=== PATIENT | male | born 2000 | race Caucasian/White ===

== ENCOUNTER 2020-08-30 14:28 | Outpatient (REF) | payer MEDICAID, SELFPAY | END 2020-08-30 14:29 | disposition home or self-care (01) | LOC: HO.LNP 14:28 | PROVIDERS: Visit Provider Internal Medicine | DX: Z20.828 Contact with and (suspected) exposure to other viral communicable diseases (principal) | CPT/HCPCS: U0003 ==

== ENCOUNTER 2021-05-01 14:11 | Outpatient (REF) | payer MEDICAID, SELFPAY ==
[2021-05-01 14:56] LABS: Influenza A PCR NEGATIVE (Negative); Influenza B PCR NEGATIVE (Negative); Resp Syncy Virus RNA Qual PCR NEGATIVE (Negative); SARS COV2 PCR INHOUSE NEGATIVE (Negative)
== END 2021-05-01 14:12 | disposition home or self-care (01) ==
LOC: HO.LNP 14:11
PROVIDERS: Visit Provider Internal Medicine
DX: Z20.822 Contact with and (suspected) exposure to COVID-19 (principal); R05 Cough; J02.9 Acute pharyngitis, unspecified
CPT/HCPCS: 0241U

== ENCOUNTER 2021-09-13 16:43 | Outpatient (REF) | payer MEDICAID, SELFPAY ==
[2021-09-13 17:26] LABS: Influenza A PCR NEGATIVE (Negative); Influenza B PCR NEGATIVE (Negative); Resp Syncy Virus RNA Qual PCR NEGATIVE (Negative); SARS COV2 PCR INHOUSE NEGATIVE (Negative)
== END 2021-09-13 16:44 | disposition home or self-care (01) ==
LOC: HO.LNP 16:43
PROVIDERS: Visit Provider Internal Medicine
DX: Z20.822 Contact with and (suspected) exposure to COVID-19 (principal); J02.9 Acute pharyngitis, unspecified
CPT/HCPCS: 0241U

== ENCOUNTER 2021-10-09 15:45 | Outpatient (REF) | payer MEDICAID, SELFPAY ==
[2021-10-09 16:18] LABS: COVID-19 Test Negative (Negative); IDNOW Serial# 55D5AD1C
== END 2021-10-09 15:46 | disposition home or self-care (01) ==
LOC: HO.LNP 15:45
PROVIDERS: Visit Provider Internal Medicine
DX: Z20.822 Contact with and (suspected) exposure to COVID-19 (principal); J02.9 Acute pharyngitis, unspecified; R50.9 Fever, unspecified
CPT/HCPCS: 87635

== ENCOUNTER 2021-10-22 14:29 | Outpatient (REF) | payer MEDICAID, SELFPAY ==
[2021-10-22 14:49] LABS: COVID-19 Test Negative (Negative)
== END 2021-10-22 14:30 | disposition home or self-care (01) ==
LOC: HO.LNP 14:29
PROVIDERS: Visit Provider Internal Medicine
DX: Z20.822 Contact with and (suspected) exposure to COVID-19 (principal)
CPT/HCPCS: 87635

== ENCOUNTER 2022-05-08 14:44 | Outpatient (REF) | payer MEDICAID, SELFPAY ==
[2022-05-08 15:47] LABS: Influenza A PCR NEGATIVE (Negative); Influenza B PCR NEGATIVE (Negative); Resp Syncy Virus RNA Qual PCR NEGATIVE (Negative); SARS COV2 PCR INHOUSE NEGATIVE (Negative)
== END 2022-05-08 14:45 | disposition home or self-care (01) ==
LOC: HO.LNP 14:44
PROVIDERS: Visit Provider Internal Medicine
DX: Z20.822 Contact with and (suspected) exposure to COVID-19 (principal); R05.9 Cough, unspecified; R50.9 Fever, unspecified; J02.9 Acute pharyngitis, unspecified
CPT/HCPCS: 0241U

== ENCOUNTER 2023-07-08 21:07 | Emergency (ER) | payer OTHER, BC, SELFPAY ==
[2023-07-08 22:02] VITALS: BP 124/62; PULSE 84; RESP 18; TEMP 37; O2SAT 100; BMI 31.6
--- NOTE | 2023-07-09 02:36 | ED.WOUNDLAC ---
HPI - Wound/Laceration General Chief Complaint: Wound/Laceration Stated Complaint: Finger injury Time Seen by Provider: 07/09/23 02:16 Source: patient Mode of arrival: ambulatory Limitations: no limitations History of Present Illness HPI narrative: 22-year-old male came in for evaluation of left index finger laceration. Superficial cuts to the left index finger while using a floor scrap. Patient is a right-hand dominant past Related Data Allergies Allergy/AdvReac Type Severity Reaction Status Date / Time No Known Allergies Allergy Verified 07/08/23 22:01 Review of Systems Review of Systems: All other systems are reviewed and are negative Constitutional: Reports as per HPI and Reports no additional constitutional complaints Eyes: Reports as per HPI and Reports no additional eye complaints Reports system reviewed and no additional complaints, except as documented Cardiovascular: Reports as per HPI and Reports no additional cardiovascular complaints Respiratory: Reports as per HPI and Reports no additional respiratory complaints Gastrointestinal: Reports as per HPI and Reports no additional gastrointestinal complaints Genitourinary: Reports no additional female genitourinary complaints Musculoskeletal: Reports no additional musculoskeletal complaints Skin/Breast: Reports system reviewed and no additional complaints, except as docu Psychiatric: Reports no additional psychiatric complaints Endocrine: Reports no additional endocrine complaints Hematologic/Lymphatic: Reports no additional hematologic/lymphatic complaints Allergic/Immunologic: Reports no additional allergic/immunologic complaints Reports system reviewed and no additional complaints, except as documented and Reports Abnormal speech present [facility] Social History Social History Advance Directives: No Advance Directives Information Provided: Yes Physical Exam Vital Signs: Vital Signs: Last Vital Signs Temp 98.6 F 07/08/23 22:02 Pulse 84 07/08/23 22:02 Resp 18 07/08/23 22:02 BP 124/62 07/08/23 22:02 Pulse Ox 100 07/08/23 22:02 O2 Del Method Room Air 07/08/23 22:02 BMI result Body Mass Index 31.6 Vital signs have been reviewed and appear to be correct. Blood pressure elevated. Heart rate normal. Respiratory rate normal. Temperature normal. Oxygen saturation normal. Appearance: Alert. Oriented X3. No acute distress. Head: Normal external exam. Normocephalic. Atraumatic. No Handy signs noted. No raccoon eyes noted Eyes: PERRLA. EOMI. Conjunctiva and sclera normal. Eyelids normal. ENT: TM's Normal. Pharynx normal. Uvula midline. Moist mucous membranes. No trismus noted. No drooling noted. No muffled voice noted. Neck: Normal inspection. Neck supple. FROM. No adenopathy. Thyroid Normal. No meningeal signs. No neck mass noted. CVS: Normal heart rate and rhythm. Heart sound normal. No murmurs noted. Pulses normal throughout. Respiratory: No respiratory distress. Painless inspiration. Breath sounds normal. No wheezes/rales/rhonchi noted. Chest nontender. No accessory muscle usage noted or decreased air movement noted. Abdomen: Soft and nontender. Bowel sounds normal in all 4 quadrants. No distention noted. No organomegaly noted. No visible injury noted. Back: No CVA tenderness. Full range of motion noted. Skin: Skin warm and dry. Normal skin color. Normal skin turgor. No rashes/lesions/lacerations noted. Extremities: Left index finger: 2 cm superficial laceration in the middle phalanx distally, no active bleeding. Able to flex and extend both PIP and DIP, neurovascularly intact. Neuro: Oriented X 3. Cranial nerve exam: II-XII are grossly intact No motor deficit. No sensory deficit. Reflexes normal. Course Reevaluation(s) Reevaluation #1: S/p left index laceration that was repaired with Dermabond. Time: 02:39 Procedures Laceration Laceration 1: Site: hand (Middle phalanx of the index finger) Side (If applicable): left Size (cm): 2 Description: linear Depth: simple, single layer Skin layer closed with: other (Dermabond) Discharge Plan Discharge Clinical Impression: Finger laceration Qualifiers: Encounter type: initial encounter Finger: index finger Damage to nail status: without damage Foreign body presence: without foreign body Laterality: left Qualified Code(s): S61.211A - Laceration without foreign body of left index finger without damage to nail, initial encounter Patient Disposition: Home, Self-Care Instructions: Finger Laceration (ED)
== END 2023-07-09 03:13 | disposition home or self-care (01) ==
PROVIDERS: Emergency Provider Emergency Medicine
DX: S61.211A Laceration without foreign body of left index finger without damage to nail, initial encounter (principal); W26.9XXA Contact with unspecified sharp object(s), initial encounter; Y93.9 Activity, unspecified; Y92.9 Unspecified place or not applicable; Y99.9 Unspecified external cause status
CPT/HCPCS: 99282

== ENCOUNTER 2024-04-09 14:07 | Emergency (ER) | payer OTHER, BC, SELFPAY ==
--- NOTE | ~2024-04-09 | XR_ITS ---
EXAMINATION: XR KNEE, LEFT CLINICAL INFORMATION: Pain. Injury yesterday. COMPARISON: None available. TECHNIQUE: Four views of the left knee. FINDINGS: There is no fracture or dislocation. The joint spaces are well-maintained. No suprapatellar effusion. Regional soft tissue is normal in appearance. XR/XR knee LT 4V IMPRESSION: No fracture, dislocation or joint effusion.
[2024-04-09 14:09] VITALS: BP 136/63; PULSE 107; RESP 20; TEMP 36.4; O2SAT 97; BMI 33.2
--- NOTE | 2024-04-09 14:10 | ED_ITS ---
HPI - Extremity Injury (Lower) General Chief Complaint: Extremity Injury, Lower Stated Complaint: knee inj @ work Time Seen by Provider: 04/09/24 14:39 Source: patient Mode of arrival: ambulatory (with cane) Limitations: no limitations History of Present Illness ED Provider: Starr Martinez PA-C HPI Narrative: Patient is a 23 year old assigned male at with no reported medical history presenting to the emergency department today with left knee pain. Patient states that he jumped from the ground onto a stage, landing on both of his feet, when he felt and heard a pop in his left knee. Patient states that as time has gone on, the pain in his left knee has increased. Patient denies any head strike or loss of consciousness. Patient denies any dizziness, lightheadedness, abdominal pain, nausea, vomiting, fever, chills, blurry vision, double vision, loss of vision, chest pain, difficulty breathing, shortness of breath, back pain, night sweats, pain with urination, increased urinary frequency, increased urinary urgency, blood in his urine or stool, syncope or a near syncopal episode, bowel incontinence, bladder incontinence, or any other complaints at this time. MD complaint: knee injury Onset (ago): day(s) (1) Place: work Severity: moderate Severity scale (1-10): 6 Relieving factors: immobilization and rest Exacerbating factors: weight bearing and movement Context: jumping Associated symptoms: snap/pop sensation and swelling Other symptoms: none Related Data Allergies Allergy/AdvReac Type Severity Reaction Status Date / Time No Known Allergies Allergy Verified 04/09/24 14:12 Review of Systems Constitutional: Constitutional: Reports no additional constitutional complaints, Denies chills, Denies fever(s) and Denies night sweats Eyes: Eyes: Reports no additional eye complaints, Denies blurry vision, Denies change in vision, Denies diplopia, Denies eye discharge, Denies loss of vision and Denies eye pain ENT: Denies dizziness Cardiovascular: Cardiovascular: Reports no additional cardiovascular complaints, Denies chest pain, Denies lightheadedness, Denies Loss of Consciousness and Denies dyspnea Respiratory: Respiratory: Reports no additional respiratory complaints and Denies dyspnea Gastrointestinal: Gastrointestinal: Reports no additional gastrointestinal complaints, Denies abdominal pain, Denies melena, Denies hematochezia, Denies change in bowel habits and Denies change in stool character Genitourinary: Genitourinary: Reports no additional male genitourinary complaints, Denies hematuria, Denies oliguria, Denies difficulty urinating, Denies dysuria, Denies urinary frequency, Denies urinary hesitancy, Denies urinary incontinence and Denies urinary urgency Musculoskeletal: Musculoskeletal: Reports no additional musculoskeletal complaints, Denies numbness and Denies tingling Comments: left knee pain Neurologic: Denies dizziness, Denies loss of vision, Denies numbness and Denies tingling Psychiatric: Psychiatric: Reports no additional psychiatric complaints Endocrine: Endocrine: Reports no additional endocrine complaints Hematologic/Lymphatic: Hematologic/Lymphatic: Reports no additional hematologic/lymphatic complaints Allergic/Immunologic: Allergic/Immunologic: Reports no additional allergic/immunologic complaints PMFSH Past Medical History Attestation statement: The following information was validated with the patient. Source: old records reviewed and nursing notes reviewed Social History Social History Advance Directives: Yes Advance Directives Information Provided: Yes Advance Directives on File: No Do you have a plan to hurt others: No Plan Physical Exam Vital Signs: Vital Signs: Last Vital Signs Temp 97.5 F 04/09/24 16:47 Pulse 107 H 04/09/24 16:47 Resp 20 04/09/24 16:47 BP 136/63 04/09/24 16:47 Pulse Ox 97 04/09/24 16:47 O2 Del Method Room Air 04/09/24 16:47 BMI result Body Mass Index 33.2 Const: General: cooperative, no acute distress, alert and awake Nutritional Appearance: well nourished Orientation/consciousness: patient oriented x3 Limitations: no limitations HEENT: Head: Yes normal to inspection and Yes atraumatic Ears: hearing grossly normal bilaterally and external ears normal General nose exam: Normal external nose present, no nasal discharge noted and no epistaxis Face and sinus: Yes normal facial exam, No abrasion and No laceration Mouth: Normal oral and palatal mucosa present, no drooling and no muffled voice Eyes: General: appearance normal, both eyes and all related structures Periorbital: periorbital findings normal Eyelids: Yes eyelids normal Conjunctivae: conjunctivae normal Pupils: Equal, round and reactive pupils present EOM: EOMs intact bilaterally Neck: Neck: Yes normal visual inspection, Yes full ROM and Yes no lymphadenopathy Chest: Chest palpation & inspection: normal inspection of the chest Resp: Effort & Inspection: normal respiratory effort and able to speak in complete sentences GI: Inspection: Yes normal to inspection Neuro: General: patient oriented x3 and moves all extremities Cranial nerves: Yes Equal, round and reactive pupils present Cognition (Neuro): normal cognition Extrem: Other: Mild swelling present to the left knee Patient has pain with valgus stress of the left knee - concerning for MCL instability Patient does have full ROM of the left knee - painful General: Yes full ROM and Yes capillary refill normal Psych: Appearance: grossly normal Mental Status: mental status grossly normal Affect: normal affect Attitude: cooperative Thought process: Normal thought process present Thought content: Normal thought content present Insight: Good insight present (Psych) Course Course Course Narrative: This is an RME performed by John Garcia CNP: Additional HPI, ROS, PE not included below will be deferred to primary provider. Patient is a 23-year-old male who presents emergency department for evaluation, reports yesterday while at work he jumped up onto a stage, felt a pop to the left knee, initially had intense sharp pain, has progressed since time of injury. Denies numbness or tingling. Plan: XR Medical Decision Making Medical Decision Making MDM Narrative: Patient is a 23 year old assigned male at with no reported medical history presenting to the emergency department today with left knee pain. Patient's physical exam was as noted in the physical exam portion of this note. Patient's left knee x-ray showed no acute process. I explained my physical exam findings as well as all test results to the patient. I answered all questions asked by the patient. Patient's left knee was placed in a knee immobilizer, without incident. Patient's PMS was intact prior to and after immobilizer placement. Patient was given crutches and crutch instructions. I stressed the importance of the patient taking his medication as directed (either prescribed or as the over the counter packaging recommends). I stressed the importance of the patient following up with his primary care provider, the orthopedic team, and [facility]. I stressed the importance of the patient returning to the emergency department immediately if his symptoms were to worsen or if he were to develop any dizziness, shortness of breath, difficulty breathing, chest pain, blurry vision, loss of vision, nausea, vomiting, abdominal pain, fever, chills, back pain, or any other complaints. Patient verbalized agreement and understanding with this treatment plan and discharge. Differential Diagnosis Differential Diagnoses: The differential diagnosis associated with the presentation includes MCL sprain MCL strain MCL tear Knee pain Knee sprain Knee strain Admission/Observation Consideration of admission/observation: Escalation of care including admission/observation considered Patient would have been admitted to the hospital had his work up had any findings where hospital admission was appropriate and his clinical presentation warranted hospital admission. Independent Interpretation I performed an independent interpretation of an: Plain X-Ray Interpretation: My interpretation is in agreement with the radiologist's impression of this imaging study. EXAMINATION: XR KNEE, LEFT CLINICAL INFORMATION: Pain. Injury yesterday. COMPARISON: None available. TECHNIQUE: Four views of the left knee. FINDINGS: There is no fracture or dislocation. The joint spaces are well-maintained. No suprapatellar effusion. Regional soft tissue is normal in appearance. XR/XR knee LT 4V IMPRESSION: No fracture, dislocation or joint effusion. Dictated By: Faizan Salcedo Jr, DO Signed By: Electronically signed by Faizan Salcedo Jr, DO 04/09/24 1534 Radiology Impression Discussion of test interpretation with radiology: I have reviewed the radiologist's reading. Procedures Orthopedic Splinting/Casting left knee: Side: left Lower Extremity Injury Location: knee Lower Extremity Immobilizer: knee immobilizer Other Orthopedic Equipment: crutches Discharge Plan Discharge Clinical Impression: Knee sprain Patient Disposition: Home, Self-Care Instructions: Knee Sprain (DC), Crutch Instructions (ED) Additional Instructions: Your exam showed pain with valgus stress which is concerning for an MCL injury. Any time you ambulate - you should be in a knee immobilizer and non weight bearing. Follow up with your primary care provider, the orthopedic team, and given this was a work place in [employer] - work connection. Return to the emergency department immediately if your symptoms worsen or if you develop any dizziness, shortness of breath, difficulty breathing, chest pain, blurry vision, loss of vision, nausea, vomiting, abdominal pain, fever, chills, back pain, or any other complaints. Referrals: [facility] [place] [facility] [place] [facility] [Provider Group] (Call to establish and follow up with an orthopedic provider.) [facility] [Provider Group] (Call to establish and follow up with work connection.) Sebastian Holliday MD [Primary Care Provider] - Stand Alone Forms: Work/School Release Interventions: ED Discharge Assessment Last Done: 04/09/24 16:47 Discharge Date/Time: 04/09/24 16:47 Print Language: Jordanian
--- NOTE | 2024-04-09 16:44 | PC.NURSE ---
knee immobilizer applied to LLE. pt tolerated well. crutch training provided by [employer].
[2024-04-09 16:47] VITALS: BP 136/63; PULSE 107; RESP 20; TEMP 36.4; O2SAT 97
== END 2024-04-09 16:47 | disposition home or self-care (01) ==
PROVIDERS: Emergency Provider Emergency Medicine; PCP Internal Medicine
DX: S83.92XA Sprain of unspecified site of left knee, initial encounter (principal); X50.9XXA Other and unspecified overexertion or strenuous movements or postures, initial encounter; Y93.89 Activity, other specified; Y92.219 Unspecified school as the place of occurrence of the external cause; Y99.0 Civilian activity done for income or pay
CPT/HCPCS: 73564; 99282; 99283

== ENCOUNTER 2024-04-28 14:49 | Outpatient (AMB) | payer OTHER, BC, SELFPAY ==
[2024-04-28 15:09] VITALS: BMI 33.1
--- NOTE | 2024-04-28 15:09 | A.OFFVIS_ITS ---
Vital Signs 04/28/24 15:09 Height 5 ft 10 in Weight 231 lb BMI 33.1 Intake Visit Reasons: [employer]-LT knee DOI 04/08/24 Intake Note: Jared Loyd a 23 year old male who presents today for as a new patient for a evaluation of left knee pain, DOI 04/08/24. Patient reports the he had jumped up onto the stage and had lost his footing. He had soreness throughout the day followed by limping about 2 hours later. He then tried to sleep off however the following day he had pain with weight bear. He presented to [facility] where xrays were taken and placed in a knee immobilizer. Currently his pain is located at the anterior and medial aspect of knee. He is unable to fully extend his leg. Allergies No Known Allergies Allergy (Verified 04/28/24 15:22) HPI HPI [employer]-LT knee DOI 04/08/24 WC: Details: Jared Loyd is a 23-year-old male who presents today as a new patient for an evaluation of right knee pain, DOI 01/08/2024. The patient claims that when he leaped onto the stage, lost his footing, and had pain all day. He started limping about 2 hours later. He tried to sleep off, but the following day he experienced pain when bearing weight. He presented to [facility] where he was placed in a knee immobilizer. Though his pain has improved recently, but he is still unable to fully extend his leg. He states that he did not attend physical therapy sessions. [facility] Social History (Updated 04/28/24 @ 15:14 by Marta Salcedo Sanchez) Patient Tobacco Use Status: Never used Tobacco Current occupation: warehouse checker Review of Systems Const All systems reviewed & are unremarkable except as noted in HPI and below Physical Exam Vital Signs: BMI result Body Mass Index 33.1 Const General: cooperative, healthy appearing, comfortable and no acute distress Orientation/consciousness: patient oriented x3 Neck Neck: Yes normal visual inspection and Yes no JVD Chest Chest palpation & inspection: normal inspection of the chest Resp Effort & Inspection: normal respiratory effort Auscultation: clear to auscultation bilaterally, crackles (no), rales (no), rhonchi (no) and wheezes (no) Cardio Jugular venous distension: no JVD Rate: regular rate Rhythm: regular rhythm Heart sounds: S1 normal heart sound present, S2 normal heart sound present, Murmur heart sound present (no) and Rub heart sound present (no) Neuro General: patient oriented x3 Extrem Other: Left knee: Skin intact, no erythema or joint effusion. Tenderness along the medial joint line. Full ROM with crepitus. Negative Emmett?s. No ligamentous laxity. NVI. General: Yes normal to inspection, Yes no pedal edema and Yes no calf tenderness Psych Appearance: grossly normal Mental Status: mental status grossly normal Speech and movement: Normal speech and movement present Results Reviewed Results Reviewed: XR knee LT 4V IMPRESSION: No fracture, dislocation or joint effusion. Assessment & Plan Assessment & Plan (1) Internal derangement of left knee: Code(s): M23.92 - Unspecified internal derangement of left knee Category: Medical Plan MRI of the left knee has been ordered to further evaluate the integrity of his meniscus and he was given a Hinged knee brace to wear for stability. I discussed some exercises in the office, how to maintain and improve his range of motion and he will remain out of work until I see him back in the office once the MRI is complete. Orders: Orders MR knee LT wo con 04/28/24 M23.92 - Unspecified internal derangement of left knee Medications: New naproxen 500 mg PO BID 60 tabs 3RF 30 days Patient Instructions: Scribed for Heena Dale PA-C, by Ciara Bergeron pediatric medical assistant, on 04/28/2024 at 3:15 PM EST. IHeena PA-C, have personally reviewed and agree with the information entered by the scribe. Coding Level of Care Code New Pt Level 3 (08006) Diagnoses Internal derangement of left knee M23.92
== END 2024-04-28 16:15 | disposition home or self-care (01) ==
PROVIDERS: PCP Internal Medicine; Visit Provider Physician Assistant
DX: M23.92 Unspecified internal derangement of left knee (principal); Z04.2 Encounter for examination and observation following work accident
CPT/HCPCS: 99203

== ENCOUNTER → 2024-04-28 14:49 | Outpatient (BNVA) | payer OTHER, BC, SELFPAY | PROVIDERS: PCP Internal Medicine; Visit Provider Physician Assistant | DX: M23.92 Unspecified internal derangement of left knee (principal) | CPT/HCPCS: 99202 ==

== ENCOUNTER 2024-05-18 18:28 | Outpatient (REF) | payer OTHER, BC, SELFPAY ==
--- NOTE | ~2024-05-18 | MR_ITS ---
EXAMINATION: MR KNEE WITHOUT CONTRAST, LEFT CLINICAL INFORMATION: Internal derangement of left knee COMPARISON: None available. TECHNIQUE: MRI of the knee without contrast was performed using routine sequences on a high-field scanner. FINDINGS: MENISCI: Medial Meniscus: Intact Lateral Meniscus: Intact LIGAMENTS: Cruciate: Mucoid degeneration of the anterior cruciate ligament and a small lobulated cyst extending along the length of the ligament. PCL intact. Collateral: Intact EXTENSOR MECHANISM: Intact ARTICULAR CARTILAGE/BONE: Patellofemoral Compartment: Normal Medial Compartment: Normal Lateral Compartment: Normal JOINT FLUID AND BURSAE: Normal MR/MR knee LT wo con IMPRESSION: Mucoid degeneration of the anterior cruciate ligament with a small lobulated cruciate cyst extending along the length of the ligament. Electronically signed by: Antonio Diane MD 05/24/2024 06:49 AM EDT
== END 2024-05-18 18:29 | disposition home or self-care (01) ==
LOC: HO.MRI 18:28
PROVIDERS: PCP Internal Medicine; Visit Provider Physician Assistant
DX: M23.92 Unspecified internal derangement of left knee (principal)
CPT/HCPCS: 73721

== ENCOUNTER 2024-06-04 14:26 | Outpatient (AMB) | payer OTHER, BC, SELFPAY ==
--- NOTE | 2024-06-04 14:27 | A.OFFVIS_ITS ---
Vital Signs 06/04/24 14:30 Height 5 ft 10 in Weight 231 lb BMI 33.1 Intake Visit Reasons: OV- MRI review LT knee sprain-DOI 04/08/24 WC Intake Note: Max a 23 year old male who presents today for an MRI review of left knee, DOI 04/08/24. Patient reports having some improvement in his pain since his last visit. He states yesterday noticed pain with lifting a laundry basket. He feels this discomfort with fully straightening his leg. Allergies No Known Allergies Allergy (Verified 06/04/24 14:33) Medication List - Last Reconciled 06/04/24 by Heena Dale PA-C naproxen 500 mg PO BID 30 days HPI HPI OV- MRI review LT knee sprain-DOI 04/08/24 WC: Details: 23-year-old male who returns to the office today for an MRI review of left knee work injury, 04/08/24. He states he has some improvement in his pain since his last visit. He reports pain yesterday while lifting a laundry basket. He also experiences discomfort with full straightening his leg. He is working on exercises for his leg with benefits. He has no other concerns today. [facility] Social History Patient Tobacco Use Status: Never used Tobacco Current occupation: erp programmer Review of Systems Const All systems reviewed & are unremarkable except as noted in HPI and below Physical Exam Vital Signs: BMI result Body Mass Index 33.1 Const General: cooperative, healthy appearing, comfortable and no acute distress Orientation/consciousness: patient oriented x3 Neck Neck: Yes normal visual inspection and Yes no JVD Chest Chest palpation & inspection: normal inspection of the chest Resp Effort & Inspection: normal respiratory effort Auscultation: clear to auscultation bilaterally, crackles (no), rales (no), rhonchi (no) and wheezes (no) Cardio Jugular venous distension: no JVD Rate: regular rate Rhythm: regular rhythm Heart sounds: S1 normal heart sound present, S2 normal heart sound present, Murmur heart sound present (no) and Rub heart sound present (no) Neuro General: patient oriented x3 Extrem Other: Left knee: Skin intact, no erythema or joint effusion. Tenderness along the medial joint line. Full ROM with crepitus. Negative Emmett?s. No ligamentous laxity. NVI. General: Yes normal to inspection, Yes no pedal edema and Yes no calf tenderness Psych Appearance: grossly normal Mental Status: mental status grossly normal Speech and movement: Normal speech and movement present Results Reviewed Results Reviewed: MR knee LT wo con IMPRESSION: Mucoid degeneration of the anterior cruciate ligament with a small lobulated cruciate cyst extending along the length of the ligament. Electronically signed by: Antonio Diane MD 05/24/2024 06:49 AM Assessment & Plan Assessment & Plan (1) Chondromalacia, left knee: Code(s): M94.262 - Chondromalacia, left knee Category: Medical Plan MRI was reviewed and we discussed at length the recommendations which include physical therapy which he feels he can work on his own as he goes to the gym. He will focus on posterior chain strengthening exercises, quad, glute and hamstring strengthening exercises. He was given a patellar stabilizing brace in the office today. He will return to work on 06/07/24 with limited stairs and climbing. He will avoid any type of deep bending, kneeling, twisting, pivoting, or squatting for the next 4 weeks. I anticipate full duty at that time. If symptoms persist or worsen over the next 6-8 weeks, patient will contact the office to discuss further options, otherwise follow-up as needed. Patient Instructions: Scribed for Heena Dale PA-C, by Steven De La Cruz bilingual medical assistant, on 06/04/2024 at 2:45 PM EST.? I, Heena Dale PA-C, have personally reviewed and agree with the information entered by the scribe. Coding Level of Care Code Est Pt Level 3 (16959) Complex EM visit Add On G2211 Diagnoses Chondromalacia, left knee M94.262
[2024-06-04 14:30] VITALS: BMI 33.1
== END 2024-06-04 15:04 | disposition home or self-care (01) ==
PROVIDERS: PCP Internal Medicine; Visit Provider Physician Assistant
DX: M94.262 Chondromalacia, left knee (principal)
CPT/HCPCS: 99213; G2211

== ENCOUNTER → 2024-06-04 14:26 | Outpatient (BNVA) | payer OTHER, BC, SELFPAY | PROVIDERS: PCP Internal Medicine; Visit Provider Physician Assistant | DX: M94.262 Chondromalacia, left knee (principal) | CPT/HCPCS: 99212 ==